=== PATIENT | male | born 1940 | race Caucasian/White ===

== ENCOUNTER 2019-12-04 08:57 | Day surgery (SDC) | payer MEDICARE, SELFPAY ==
--- NOTE | 2019-11-29 10:36 | EKG12_ITS ---
Test Reason : PRE OP Blood Pressure : / mmHG Vent. Rate : 064 BPM Atrial Rate : 064 BPM P-R Int : 194 ms QRS Dur : 096 ms QT Int : 428 ms P-R-T Axes : 029 022 042 degrees QTc Int : 441 ms Normal sinus rhythm Normal ECG Confirmed by MITUL SANTAMARIA ([id number]), editorial specialist EMELI PATRICIO ([id number]) on 11/30/2019 11:36:56 AM Referred By: Fab Sweet Confirmed By:MITUL SANTAMARIA
[2019-11-29 11:06] LABS: Hematocrit 40.4 % (40-54); Hemoglobin 12.5 g/dL (13.0-16.5); Mean Corp Hgb Conc 30.9 g/dL (32-36); Mean Corpuscular Hgb 27.1 pg (27.0-32.0); Mean Corpuscular Volume 87.6 fL (80-94); Platelet Count 279 K/mm3 (150-450); RBC Distribution Width CV 14.7 % (11.6-14.6); Red Blood Count 4.61 M/mm3 (4.6-6.2); White Blood Count 5.6 K/mm3 (4.4-11.0)
[2019-11-29 12:10] LABS: Anion Gap 6 (5-15); BUN 22 mg/dL (7-18); Calcium,Total 8.4 mg/dL (8.5-10.1); Chloride 103 mmol/L (98-107); Creatinine, Serum 1.05 mg/dL (0.70-1.30); EST Glomerular Filtration Rate 72 mL/min (>60); Est Glom Filt Rate - Afr Amer 88 mL/min (>60); Glucose 76 mg/dL (74-106); Potassium 3.7 mmol/L (3.5-5.1); Sodium Level 139 mmol/L (136-145); Thyroid Stim Hormone (TSH) 3.86 uIU/mL (0.358-3.74)
[2019-12-04] VITALS (7 sets, daily range): BP systolic 134–153; BP diastolic 70–85; PULSE 54–86; RESP 14–16; TEMP 36.2–36.9; O2SAT 95–99; BMI 32.3
--- NOTE | 2019-12-04 | NASAL_PTH ---
PATIENT: NORMA JACKSON LOC: [facility] – [place] U#:[id number] AGE/SX: 79/M ROOM: RE12/04/[address]: Dr. Fab Sweet MD : [id number] BED: DIS: 12/04/2019 SPEC #: [id number] RECD: 12/04/19 12:57 STATUS: MARK BAYRON #: [id number] PRESTON: 12/04/19 00:[address]: Fab Sweet DEPT: SURGICAL PATHOLOGY RECD BY: Leo Sands ENTERED: 12/05/19 08:49 SP TYPE: NASAL SPEC OTHR DR: Dr. Colby Cummings MD Tissues: Nasal cartilage, NOS Procedures: Decalcification bone/plaque Surgery Specimen Level III HEADER OPERATION: Septoplasty, submucosal resection of inferior turbinates PRE-OP DIAGNOSIS: Nasal congestion, hypertrophy of nasal turbinates, deviated nasal septum TISSUE SUBMITTED: Nasal bone and cartilage MICROSCOPIC DIAGNOSIS Nasal bone and cartilage: Pieces of bone and cartilage, clinically deviated nasal septum. KARLA:ed 12/08/19 MICROSCOPIC DESCRIPTION Slides are reviewed. GROSS DESCRIPTION Received in fixative is one container labeled with the patient's name and designated nasal bone and cartilage. The specimen consists of multiple fragments of cartilage and bone that in aggregate measure 3 x 2.5 x 0.3 cm. The specimen is totally submitted in one cassette after decalcification. / KARLA:ed 12/05/19 TC:5 CPT: 17754, 06002
[2019-12-04] MEDS: Lactated Ringers 1,000 ML 100 ML IV (09:56)
--- NOTE | 2019-12-04 10:08 | DCINST_ITS ---
You will use the following diet at home:: Regular Your food should be the consistency of: Regular Discharge Activity: No Restrictions, - - No noseblowing Additional Activity Instructions:: Start saline nasal spray...3 sprays each nostril 3x/day on 12/05/19 Allergies/Adverse Reactions: Allergies No Known Allergies Allergy (Verified 11/27/19 10:55) Medications to take at Discharge Atorvastatin Calcium [Lipitor] 40 mg PO QHS 11/28/19 Bumetanide 1 mg PO DAILY 11/28/19 Folic Acid 0.8 mg PO DAILY 11/28/19 Levothyroxine [Synthroid] 25 mcg PO QODAY 11/28/19 Levothyroxine [Synthroid] 50 mcg PO QODAY 11/28/19 Lutein 6 mg PO DAILY 11/28/19 Multivitamin with Minerals [Multiple Vitamin] 1 ea PO DAILY 11/28/19 Potassium Chloride [Klor-Con M20] 20 meq PO BID 11/28/19 Primary Care Physician: Colby Cummings MD [Primary Care Provider] - Test Results: Test results from this visit will be discussed in further detail at your follow- up appointment, if applicable.
[2019-12-04] MEDS: Oxymetazoline 0.05% 1 SPRAY SPRAY.BTL 15 SPRAY (10:45)
[2019-12-04] MEDS: Mupirocin Ointment 22gm Tube 1 APPLIC (10:45)
--- NOTE | 2019-12-04 11:19 | PCM.OPRPT ---
Report of Operation Date of Procedure: 12/04/19 Pre-Operative Diagnosis: nasal airway obstruction. deviated septum. inferior turbinate hypertrophy. acquired nasal deformity Post-Operative Diagnosis: same Surgery/Procedure Performed:: Septoplasty. Bilateral submucous resection inferior turbinates. Bilateral latera implantation Type of Anesthesia:: General Anesthesiologist: Ubaldo Prescott Estimated Blood Loss (mL): minimal Description of Procedure: The patient was taken to the operating room on 12/04/2019. He was placed in supine position on the operating table. He was given sufficient general endotracheal anesthesia. The table was elevated 30 degrees. The nose was prepped and draped sterilely. 1% lidocaine with epinephrine was injected into the septum nasal floor anterior aspect of the inferior turbinates bilaterally. Nasal hair was trimmed with the scissors and removed. A right hemitransfixion incision was made with a 15 blade. The mucoperichondrial was elevated off of the left-hand side of the septum with a Olmstead elevator. An anterior and posterior tunnel were created in this fashion. The bony cartilaginous junction was with a Olmstead elevator. A posterior tunnel was created on the right side developed by elevating the mucoperichondrial with a Olmstead. The deviated portions of bony septum removed using open Clinton-Dereck forceps. Next I established a plane on the right-hand side of the quadrangular cartilage as it was completely deviated into the right nasal cavity. I left a superior and anterior cartilage strip of 1.5 cm however the rest the quadrangular cartilage was excised with a D knife. This was removed and scored and eventually reinserted back into the septum. The maxillary crest was removed with a hammer and chisel. The remaining quadrangular cartilage was scored with a 15 blade. Afrin was used for hemostasis as well as Evens powder. Next, an incision was placed anterior aspect of the right inferior turbinate at the mucocutaneous junction. A submucous plane established with a caudal elevator. Submucous resection was carried out using a microdebrider. Afrin pledgets were used for hemostasis. The incision was then closed with 4-0 chromic. Then, an incision was placed at the anterior aspect of the left inferior turbinate at the mucocutaneous junction. A submucous plane established using a caudal elevator. Submucous resection was carried out using a microdebrider. The incision was then closed with 4-0 chromic. Afrin and Evens were used for hemostasis. Next the quadrangular cartilage was reinserted. The hemitransfixion incision was closed with 4-0 chromic. Galeas nasal splints were applied to each side of the septum and sewn through and through with 3-0 silk. The Latera implant was aligned above the external valve and marked on the left side. The Latera needle was inserted toward the septum and lateral to the lower lateral cartilage using a ball tipped probe for eversion. Next, the needle was placed in the supraperichondrial plane until it was driven to its intended location. The implant was deployed and held externally while the needle was removed. The same procedure was then performed on the right hand side. Visual inspection and palpation reveal perfect position of the implant bilaterally. The patient was then awoken and brought to the recovery room in stable condition. Blood loss minimal, replacement none. Sponge, needle count, sponge count, were correct at the end of this procedure.
[2019-12-04] MEDS: Acetaminophen 325 MG Tablet 650 MG PO (12:51)
== END 2019-12-04 13:19 | disposition home or self-care (01) ==
LOC: SDC 08:59 → AC 09:00
PROVIDERS: Anesthesiology; PCP Internal Medicine; Referring Provider Otolaryngology; Visit Provider Otolaryngology
PROC: (CPT 30520; principal; 2019-12-04 10:15)
DX: J34.3 Hypertrophy of nasal turbinates (principal); J34.2 Deviated nasal septum; M95.0 Acquired deformity of nose; Z11.59 Encounter for screening for other viral diseases; I10 Essential (primary) hypertension; G47.30 Sleep apnea, unspecified; Z91.19 Patient's noncompliance with other medical treatment and regimen; E78.00 Pure hypercholesterolemia, unspecified; E06.9 Thyroiditis, unspecified; Z86.2 Personal history of diseases of the blood and blood-forming organs and certain disorders involving the immune mechanism; Z85.828 Personal history of other malignant neoplasm of skin; Z79.899 Other long term (current) drug therapy
CPT/HCPCS: 00160; 30140; 30520; 36415; 80048; 84443; 85027; 87635; 88304; 88311; 93005; G2023; J7120; J2405; U0003